=== PATIENT | female | born 1960 | race African-American/Black ===

== ENCOUNTER 2019-04-26 14:56 | Inpatient (IN) | payer MEDICARE ==
[~2019-04-26] VITALS: Ht 157.5 cm; Wt 73.5 kg
--- NOTE | 2019-04-26 15:13 | NUR ---
PT AAOX4. AMBULATORY. DAYANNA FROM [facility] FOR MEDICAL CLEARANCE PRIOR TO GPS ADMISSION. PER PA PT HAS BEEN NON COMPLIANT WITH MEDS AND CARE. PT ALSO HAS BEEN AGGRESIVE VERBALLY AND IS ON A 5150. PLACED ON MONITOR AND PULSE OX.
--- NOTE | 2019-04-26 15:14 | NUR ---
SECURITY CALLED FOR WANDING
--- NOTE | 2019-04-26 15:14 | NUR ---
URINE COLLECTED AND SENT TO LAB
--- NOTE | 2019-04-26 15:14 | NUR ---
[facility]
[2019-04-26] MEDS ORDERED: NA P133E RC (15:16)
[2019-04-26] MEDS ORDERED: MAGN400O6 PO (15:16)
[2019-04-26] MEDS ORDERED: OLAN20TA3 PO (15:16)
[2019-04-26] MEDS ORDERED: BISA10SU11 RC (15:16)
[2019-04-26] MEDS ORDERED: ZOLP5TAB2 PO (15:16)
[2019-04-26] MEDS ORDERED: LORA-259 PO (15:16)
[2019-04-26] MEDS ORDERED: ACET-868 PO (15:16)
[2019-04-26] MEDS ORDERED: LISI10TA5 PO (15:16)
[2019-04-26] MEDS ORDERED: BENZ1TAB7 PO (15:16)
[2019-04-26] MEDS ORDERED: HALO5TAB8 PO (15:16)
[2019-04-26] MEDS ORDERED: MIRT15TA7 PO (15:16)
[2019-04-26] MEDS ORDERED: GUAI100S11 PO (15:16)
[2019-04-26 15:35] LABS: BILIRUBIN,URINE SMALL (NEGATIVE); BLOOD, URINE Negative Ery/uL (NEGATIVE); COLOR,URINE Yellow (YELLOW); KETONES,URINE Trace (NEGATIVE); LEUKOCYTE ESTERASE ,URINE Trace (NEGATIVE); NITRITE, URINE Negative (NEGATIVE); PROTEIN,URINE Trace mg/dl (NEGATIVE); UGLUCOSE Negative (NEGATIVE); UROBILINOGEN,URINE 0.2 EU/dL (0.2)
[2019-04-26 15:36] LABS: APPEARANCE,URINE SLIGHTLY CLOUDY (CLEAR)
[2019-04-26 15:39] LABS: BACTERIA,URINE Moderate /HPF (None Seen); SQUAMOUS EPITHELIAL CELL,UR Many /HPF (None Seen); YEAST,URINE Few /HPF (None Seen)
--- NOTE | 2019-04-26 15:39 | NUR ---
CALLED FOR GPS BED
--- NOTE | 2019-04-26 15:59 | NUR ---
PATIENT REFUSED BLOOD DRAW. AWARE.
--- NOTE | 2019-04-26 16:13 | NUR ---
[facility] BED 216-1
--- NOTE | 2019-04-26 16:24 | NUR ---
REPORT GIVEN TO JAIMEE ANDERSON FOR YO
--- NOTE | 2019-04-26 16:50 | NUR ---
RN GPS ADMISSION NOTE: 59 YEAR OL FEMALE BROUGHT IN TO THE HOSPITAL BY EMS ADMITTED ON 5150 HOLD DTO/DTS/GD FROM [facility]. 5150 HOLD EXPIRING ON 04/29/2019. PT HAS BEEN NON-COMPLIANT WITH MEDICATIONS, REFUSING CARE FROM STAFF, ATTEMPTING TO ELOPE FROM FACILITY WITH NO REGARD FOR HER PERSONAL SAFETY. PT STATED " I DONT KNOW WHAT THEY ARE DOING TO ME BUT IF THEY KEEP THIS UP I AM GOING TO BE JOINING THE [employer]" PT BELIEVES STAFF IS POISONING HER FOOD. PT BECAME AGGRESSIVE AND LOUD WITH STAFF. UPON FACE TO FACE ASSESSMENT PT IS CONFUSED, ANGRY, COMBATIVE, PARANOID, LABILE, TEARFUL, TANGENTIAL, THOUGHT BLOCKING AND CIRCUMSTANCIAL COMMUNICATION. PT IS DISHEVELED, UNKEPT AND BIZARRE IN APPEARANCE. PT IS AMBULATORY WITH STEADY GATE. SPEECH IS PRESSURED AND PT IS YELLING AND SCREAMING. PT REFUSE MRSA, BODY CHECK, UA AND ACCUCHECK. PT HAS A H/O SCHIZOPHRENIA AND MDD WITH PAST PSYCHIATRIC ADMISSIONS. PT IS ON LISINOPRIL 10MG DAILY, COGENTIN 1MG TID, REMERON 15MG QHS AND HALDOL 5MG PO TID.NKA. PT IS A FULL CODE. PT [id number], 98.1,20,90 AND 96%. PT GIVEN PT'S RIGHTS HANDBOOK AND GUIDE TO PRESCRIPTIONS.
[2019-04-26] MEDS ORDERED: TEMAZEPAM 7.5 MG CAPSULE PO PRN (17:00)
[2019-04-26] MEDS ORDERED: ACETAMINOPHEN 325 MG TABLET PO PRN (17:00)
[2019-04-26] MEDS ORDERED: MAG HYDROX/AL HYDROX/SIMETH 30 ML UDC PO PRN (17:00)
[2019-04-26] MEDS ORDERED: MAGNESIUM HYDROXIDE 30 ML UDC PO PRN ×2 (17:00→22:30)
[2019-04-26] MEDS ORDERED: BLOOD SUGAR DIAGNOSTIC 1 EACH STRIP IN ONE (17:00)
[2019-04-26 17:59] VITALS: BP 160/90
[2019-04-26 18:22] VITALS: BP 160/90
--- NOTE | 2019-04-26 19:35 | NUR ---
GPS RN NOTES: PT REFUSED TO CHECK VS. EXPLAINED RISKS AND BENEFITS. STILL REFUSED X3. CONTINUE TO MONITOR.
[2019-04-26] MEDS ORDERED: GUAIFENESIN 300 MG/15 ML UDC PO PRN (22:30)
[2019-04-26] MEDS ORDERED: BISACODYL SUPP (10 MG) 10 MG/SUPP.RECT SUPP.RECT RC PRN (22:30)
[2019-04-26] MEDS ORDERED: NA PHOS,M-B/NA PHOS,DI-BA 1 EA ENEMA RC PRN (22:30)
--- NOTE | 2019-04-27 05:53 | NUR ---
GPS RN NOTES: PT REFUSED BLOOD DRAW. EXPLAINED RISKS AND BENEFITS. STILL REFUSED X3. WILL TRY AGAIN LATER TODAY. WILL ENDORSE TO DAY SHIFT NURSE TO F/U. CONTINUE TO MONITOR.
[2019-04-27 08:00] VITALS: BP 158/98
[2019-04-27] MEDS: BENZTROPINE MESYLATE (1 MG) 1 MG TABLET PO SCH ×3 (09:00→17:44)
[2019-04-27] MEDS: LISINOPRIL (10MG) 10 MG TABLET PO SCH (09:00)
--- NOTE | 2019-04-27 10:52 | NUR ---
FACILITY CONTACT: SW spoke with Nikko, reconciliation coordinator at [facility] Address: [address] [place] [address] [id number], [place] [address] who stated facility is not taking pt back due to her behavior and elopement risk.
--- NOTE | 2019-04-27 11:56 | NUR ---
FAMILY CONTACT: SW spoke with pts brother Zachary [phone] who provided SW with collateral information. Brother stated that pt has struggled with mental illness since pt was 14/15 year old, brother states that pt was institutionalized at the age of 17 and has been in and out of psych hospitals for the past 40 years. Brother states that pt was living on her own for the past 1.5 years and had a rapid decline after Thanksgiving. Brother mentioned that pt had been weening off her psych medications and states that pt became manic and then was sent to [facility] and then transferred to [facility] and [facility]. Per brother pt was also working at [employer] but has been unemployed all her life due to her mental illness. SW informed brother that pt has been refusing medications and refusing to eat and also refusing treatment, brother states that pt has been very paranoid and will be coming on this present day to convince pt to take medications to avoid being RIESED. SW also informed brother that [facility] is not accepting pt back due to her behavior and elopement risk. Brother is aware and agrees with locked SNF placement.
[2019-04-27] MEDS: CLONIDINE HCL 0.2MG/24H PTWK 1 EA PATCH TD SCH (12:39)
--- NOTE | 2019-04-27 13:53 | NUR ---
INITIAL DISCHARGE PLAN: Per pts brother Zachary [phone] pt needs locked SNF as he is aware that [facility] Address: [address] [place] [address] [id number], [place] [address] will not be taking pt back due to her behavior and elopement risk. SW will help form a safe and proper discharge in collaboration with .
--- NOTE | 2019-04-27 15:59 | NUR ---
GROUP NOTE: SW encouraged pt to attend group therapy on this present day discussing "reality testing." Pt not appropriate for group at this time due to paranoia and responding to internal stimuli. Pt is refusing medication and refusing care. SW will continue to encourage pt to engage in recovery and accept her illness.
[2019-04-27 16:00] VITALS: BP 155/74
[2019-04-27] MEDS: HALOPERIDOL 5 MG TABLET PO SCH (17:44)
[2019-04-27 19:42] VITALS: BP 142/78
[2019-04-27] MEDS: OLANZAPINE 10 MG TABLET PO SCH (21:00)
[2019-04-27] MEDS ORDERED: MIRTAZAPINE 15 MG TABLET PO SCH (22:00)
[2019-04-27] MEDS: MIRTAZAPINE 15 MG TABLET PO SCH (22:00)
--- NOTE | 2019-04-27 22:08 | NUR ---
GPS RN NOTES: PT REFUSED HER 2099 ZYPREXA AND HER 0 REMERON MEDICATION ORDERED. PT SCREAMED WHEN OFFERED THE MEDICATION. EXPLAINED RISKS AND BENEFITS. PT STILL REFUSED. CONTINUE TO MONITOR.
[2019-04-28] MEDS: LORAZEPAM 0.5 MG TABLET PO PRN (02:35)
--- NOTE | 2019-04-28 02:38 | NUR ---
GPS RN NOTES: PT C/O FEELING ANXIOUS. PT STATED, " I FEEL ANXIOUS RIGHT NOW. CAN I HAVE ATIVAN ONLY?" OFFERED ATIVAN 0.5 MG PO PRN ORDERED. PT AGREED. PT TOLERATED MEDICATION WELL. CONTINUE TO MONITOR.
[2019-04-28 08:00] VITALS: BP 112/71
[2019-04-28] MEDS: BENZTROPINE MESYLATE (1 MG) 1 MG TABLET PO SCH ×4 (09:00→16:52)
[2019-04-28] MEDS: OLANZAPINE 10 MG TABLET PO SCH ×3 (09:00→21:00)
[2019-04-28] MEDS: HALOPERIDOL 5 MG TABLET PO SCH ×4 (09:00→16:52)
[2019-04-28] MEDS: LISINOPRIL (10MG) 10 MG TABLET PO SCH ×2 (09:00→09:44)
--- NOTE | 2019-04-28 11:13 | NUR ---
GPS RN NOTE: PT REFUSED ALL AM MEDS DESPITE MULTIPLE ATTEMPTS AT ADMINISTRATION. DR. CUADRA NOTIFIED Addendum: 04/28/19 at 1653 by ETHEL OSLANO RN PT REFUSED 1700 MEDICATIONS
--- NOTE | 2019-04-28 15:40 | NUR ---
GROUP NOTE: SW encouraged pt to participate in group therapy on this present day discussing "discharge planning." Pt not appropriate for group at this time due to psychosis and paranoia, pt was yelling at staff for unrelated things and actively responding to internal stimuli. Pt was pacing back and forth from her room to the nurses station.
[2019-04-28] MEDS: MIRTAZAPINE 15 MG TABLET PO SCH (21:11)
[2019-04-28 22:58] VITALS: BP 112/71
[2019-04-29 08:00] VITALS: BP 101/52
[2019-04-29] MEDS: LISINOPRIL (10MG) 10 MG TABLET PO SCH (09:00)
[2019-04-29] MEDS: OLANZAPINE 10 MG TABLET PO SCH ×2 (09:00→21:00)
[2019-04-29] MEDS: HALOPERIDOL 5 MG TABLET PO SCH ×3 (09:00→17:00)
[2019-04-29] MEDS: BENZTROPINE MESYLATE (1 MG) 1 MG TABLET PO SCH ×3 (09:00→17:00)
--- NOTE | 2019-04-29 12:36 | NUR ---
PATIENT REFUSED 0900 AND 1300 MEDICATIONS DESPITE EXPLANATION OF RISKS AND BENEFITS
[2019-04-29] MEDS: LORAZEPAM 0.5 MG TABLET PO PRN (14:21)
--- NOTE | 2019-04-29 17:53 | NUR ---
PT REFUSED 1700 MEDICATIONS AND YELLED AT RN TO GET OUT OF HER ROOM.
[2019-04-29] MEDS: MIRTAZAPINE 15 MG TABLET PO SCH (21:04)
--- NOTE | 2019-04-29 22:10 | NUR ---
GPS-RN PATIENT REFUSED SCHEDULED MEDS REMERON AND OLANZAPINE. DESPITE OF EXPLANATION THE RISKS AND BENEFITS. PATIENT CONTINUES TO REFUSE. WILL CONTINUE TO MONITOR.
[2019-04-30 08:00] VITALS: BP 139/81
[2019-04-30] MEDS: OLANZAPINE 10 MG TABLET PO SCH ×2 (09:00→21:00)
[2019-04-30] MEDS: HALOPERIDOL 5 MG TABLET PO SCH ×3 (09:00→17:00)
[2019-04-30] MEDS: LISINOPRIL (10MG) 10 MG TABLET PO SCH (09:00)
[2019-04-30] MEDS: BENZTROPINE MESYLATE (1 MG) 1 MG TABLET PO SCH ×3 (09:00→17:00)
--- NOTE | 2019-04-30 09:28 | NUR ---
GPS RN PATIENT REFUSED ALL 0900 MEDICATIONS. BECAME UPSET/ANGRY AND STARTED TO YELL AT RN
--- NOTE | 2019-04-30 12:19 | NUR ---
PATIENT AGGRESSIVE, YELLING AND POSTURING WHEN APPROACHED ABOUT MEDICATION PO. WHEN ALONE IN ROOM ESCALATING BEHAVIOR AND SCREAMING AT TOP OF LUNGS IN RESPONSE TO INTERNAL STIMULI. DR. RUBIO ORDERED ZYPREXA 10MG AND ATIVAN 1MG IM. Addendum: 04/30/19 at 1248 by ETHEL SOLANO RN IM medications pulled and administered at 1237. Along with assistance of security patient received injection without any difficulty but immediately afterward started shouting again, screaming for staff to leave her house that staff is going to hell and slammed her bedroom door shut. Will monitor for safety and behavior and to monitor behavior improvement. Patient continues to scream in her room.
[2019-04-30] MEDS ORDERED: LORAZEPAM INJ 2 MG/ML VIAL IM STA (12:20)
[2019-04-30] MEDS ORDERED: OLANZAPINE 10 MG VIAL IM STA (12:20)
[2019-04-30 20:00] VITALS: BP 132/53
[2019-04-30 20:09] VITALS: BP 132/53
--- NOTE | 2019-04-30 21:52 | NUR ---
GPS RN NOTE, PATIENT HAS A COMPLAINT THAT 20 MG OF ZYPREXA IS TO MUCH FOR HER AND WOULD ONLY LIKE TO TAKE 7.5MG OF ZYPREXA. PAGED DR RUBIO AND INFORMED HER MY FINDINGS. DR RUBIO ORDERED TO GIVE ZYPREXA 7.5 MG PO ONCE. ALL ORDERS NOTED AND CARRIED OUT. WILL CONTINUE TO MONITOR THIS PATIENT.
[2019-04-30] MEDS: MIRTAZAPINE 15 MG TABLET PO SCH (22:00)
[2019-04-30] MEDS ORDERED: OLANZAPINE 2.5 MG TABLET PO ONE (22:00)
--- NOTE | 2019-04-30 22:13 | NUR ---
REFUSED 2100 MEDS PATIENT IS ANXIOUS, RESTLESS, AGITATED, REFUSED 2100 MEDS, STATED, SHE IS THE ONE TO DECIDE HER MEDICATION DOSE TO TAKE, NOT THE DOCTOR. PT. REFUSED TO TAKE ZYPREXA 20 MG & REMERON 15 MG ORDERED BY . PT. ONLY WANTED TO TAKE 7.5 MG OF ZYPREXA, NOT ANY OTHER MEDICINE. MD MADE AWARE BY CHARGE NURSE, RECEIVED NEW ORDER OF ZYPREXA 7.5 MG. WILL VERIFY THE DOSE WITH PHARMACY & GIVE TO THE PATIENT. WILL CONTINUE TO MONITOR FOR SAFETY & BEHAVIOR.
--- NOTE | 2019-04-30 22:16 | NUR ---
CALLED AFTER HOURS PHARMACY TO VERIFY ZYPREXA 7.5 MG. PHARMACIST STATED SHE WILL VERIFY THE MEDICINE.
--- NOTE | 2019-04-30 23:30 | NUR ---
GPS RN NOTE PHARMACY VERIFIED ONE TIME ZYPREXA 7.5 MG, PATIENT AGREED TO TAKE THE MEDICINE & MEDICINE GIVEN TO THE PT. ORDERED BY MD. WILL CONTINUE TO MONITOR FOR SAFETY & BEHAVIOR.
[2019-05-01] MEDS: HALOPERIDOL 5 MG TABLET PO SCH ×3 (08:47→17:00)
[2019-05-01] MEDS: BENZTROPINE MESYLATE (1 MG) 1 MG TABLET PO SCH ×3 (08:47→17:00)
[2019-05-01] MEDS: LISINOPRIL (10MG) 10 MG TABLET PO SCH (08:47)
[2019-05-01] MEDS: OLANZAPINE 10 MG TABLET PO SCH ×2 (08:48→21:00)
[2019-05-01] MEDS ORDERED: LORAZEPAM INJ 2 MG/ML VIAL IM ONE (12:30)
[2019-05-01] MEDS ORDERED: OLANZAPINE 10 MG VIAL IM ONE (12:30)
--- NOTE | 2019-05-01 12:40 | NUR ---
RN NOTE: PT BECAME ANGRY, ASSAULTIVE, SPEAKING IN TONGUE, THREATENING TO BEAT STAFF WITH BIBLE. PT RTIS AND YELLING AND SCREAMING. I WAS NOT ABLE TO REDIRECT PT. I OFFERED PT PO MEDICATION AN PT REFUSED . PT BECAME VERBALLY ABUSIVE AND DTO. I TRIED TO REDIRECT PT INTO A LOWER LEVEL OF STIMULATING SETTING PT'S BEHAVIOR CONTINUED TO ESCALATE. DR RUBIO WAS ON THE UNIT DURING THE PATIENT'S EPISODE AND ORDERED ZYPREXA 10MG AND ATIVAN 1MG IM. PT BECAME RESISTIVE AND FOUGHT THE IM MEDICATION. SECURITY WAS CALLED AND IM GIVEN TO PT'S GLUTEUS REJI AT 12:40 CLOSE MONITORING OF PT CONTINUED TO BE MANIC AND WAS FOUND WRITING ON THE BATHROOM BOUCHER. PT BECAME CALM AND STOPPED YELLING AND THREATENING OTHERS. PT BEGAN TO BE COOPERATIVE AND WAS ABLE TO BE RE-DIRECTIVE.
[2019-05-01 16:00] VITALS: BP 132/71
[2019-05-01 20:00] VITALS: BP 160/84
[2019-05-01 20:07] VITALS: BP 160/84
[2019-05-01] MEDS ORDERED: OLANZAPINE 5 MG TABLET PO ONE ×2 (20:30→21:00)
--- NOTE | 2019-05-01 21:01 | NUR ---
REFUSED ZYPREXA 20 MG PATIENT REFUSED TO TAKE ZYPREXA 20 MG, WANTS TO TAKE 7.5 MG ONLY. CHARGE NURSE NOTIFIED MD & RECEIVED NEW ORDER TO GIVE ZYPREXA 7.5 MG ONE TIME ONLY. WILL NOTIFY PHARMACY TO VERIFY THE ORDER & WILL GIVE ZYPREXA 7.5 MG TO THE PT. ORDERED.
[2019-05-01] MEDS: MIRTAZAPINE 15 MG TABLET PO SCH (21:23)
--- NOTE | 2019-05-01 21:24 | NUR ---
GPS RN NOTE PATIENT TOOK ZYPREXA 7.5 MG ONE TIME MEDICINE, REFUSED REMERON 15 MG TO TAKE DESPITE OF RISKS & BENEFIT EXPLANATIONS. WILL CONTINUE TO MONITOR FOR SAFETY & BEHAVIOR.
--- NOTE | 2019-05-01 22:00 | NUR ---
REFUSED SKIN ASSESSMENT PATIENT REFUSED SKIN ASSESSMENT DESPITE OF RISKS & BENEFITS EXPLANATIONS. PT. IS VERY PARANOID, DELUSIONAL, SUSPICIOUS, ANXIOUS, RESTLESS, AGGRESSIVE, YELLING/SCREAMING IF APPROACHED TO ASSIST WITH ANY ADL CARE OR SKIN ASSESSMENT.
[2019-05-01 23:30] VITALS: BP 147/78
[2019-05-02 08:00] VITALS: BP 138/60
[2019-05-02] MEDS: BENZTROPINE MESYLATE (1 MG) 1 MG TABLET PO SCH ×3 (08:35→17:00)
[2019-05-02] MEDS: OLANZAPINE 10 MG TABLET PO SCH (08:35)
[2019-05-02] MEDS: LISINOPRIL (10MG) 10 MG TABLET PO SCH (08:35)
[2019-05-02] MEDS: HALOPERIDOL 5 MG TABLET PO SCH ×3 (08:35→17:00)
--- NOTE | 2019-05-02 10:02 | NUR ---
RN NOTE- PT REFUSING ALL MORNING MEDS STATING SHE WILL ONLY TAKE 2.5 MG OF ZYPREXA. NOTIFIED. DR RUBIO WILL BE ON UNIT AFTER LUNCH. PT CALM AT PRESENT, RESPONDING TO INTERNAL STIMULUS. DIRECTABLE
--- NOTE | 2019-05-02 15:48 | NUR ---
PC HEARING NOTIFICATION: BRYNN contacted pts brother Zachary [phone] to inform him of pts PC hearing that will held tomorrow 05/03/19 at 1400 and also provided him with an update. BRYNN informed him that pt has been refusing medication and has filed a RIESE petition. BRYNN also informed him that pt was given IM's the past 2 days due to her aggressive behavior. Brother states that he will not attend the hearing as he states pt is blaming all her family for her current hospitalization and is refusing to speak to her them. Brother agrees with treatment plan.
[2019-05-02 16:00] VITALS: BP 152/76
[2019-05-02] MEDS: OLANZAPINE 5 MG TABLET PO SCH ×2 (17:12→21:45)
[2019-05-02 20:00] VITALS: BP 156/85
[2019-05-02 20:39] VITALS: BP 156/85
[2019-05-02 21:40] VITALS: BP 145/82
[2019-05-02] MEDS: MIRTAZAPINE 15 MG TABLET PO SCH (22:00)
--- NOTE | 2019-05-02 22:04 | NUR ---
REFUSED REMERON OFFERED REMERON 15 MG @ 2200 TO THE PATIENT, PT. KEPT REFUSING, STATED, " IT WILL KILL ME. I DON'T WANT IT." DESPITE OF RISK & BENEFIT EXPLANATIONS, PT. CONTINUED TO REFUSE.
[2019-05-02 22:30] VITALS: BP 141/79
[2019-05-03 08:00] VITALS: BP 158/90
[2019-05-03] MEDS: OLANZAPINE 5 MG TABLET PO SCH ×4 (08:03→22:00)
[2019-05-03] MEDS: BENZTROPINE MESYLATE (1 MG) 1 MG TABLET PO SCH ×3 (08:07→16:45)
[2019-05-03] MEDS: LISINOPRIL (10MG) 10 MG TABLET PO SCH (08:07)
[2019-05-03] MEDS: HALOPERIDOL 5 MG TABLET PO SCH ×3 (08:07→16:45)
--- NOTE | 2019-05-03 08:14 | NUR ---
RN NOTE- PT SCREAMING ANDF CRYING AND PRAYING. UNABLE TO CALM DOWN. TOOK ZYPREXA PO BUT PT CONTINUING TO REFUSE ALL OTHER MEDS AND ESCALATING. DR RUBIO ORDERED HALDOL 5 MG IM, ATIVAN 2 MG IM, BENADRYL 50 MG IM. WILL COMPLY AND MONITOR PT.
[2019-05-03] MEDS ORDERED: HALOPERIDOL LACTATE INJ 5 MG/ML VIAL IM ONE (08:30)
[2019-05-03] MEDS ORDERED: LORAZEPAM INJ 2 MG/ML VIAL IM ONE (08:30)
[2019-05-03] MEDS ORDERED: diphenhydrAMINE HCL 50 MG/ML VIAL IM ONE (08:30)
--- NOTE | 2019-05-03 08:34 | NUR ---
RN NOTE- HALDOL 5 MG IM, ATIVANB 2 MG IM AND BENADRYL 50 MG IM GIVEN W SECURITY, FEMALE RN AND PIPE ORGAN INSTALLER. PT COMBATIVE, FIGHTING AND SPITTING ON STAFF. WILL CONTINUE TO MONITOR AND ASSIST.
[2019-05-03] MEDS: LEVOFLOXACIN (500MG) 500 MG TABLET PO SCH (14:00)
[2019-05-03 14:09] LABS: BASOPHILS % (AUTO) 0.3 % (0.0-2.0); EOSINOPHILS % (AUTO) 1.5 % (0.0-6.0); HEMATOCRIT 34 % (33-45); HEMOGLOBIN 11.2 g/dL (11.5-14.8); LYMPHOCYTES # (AUTO) 2.1 /CMM (0.8-4.8); LYMPHOCYTES % (AUTO) 46.8 % (20.0-44.0); MEAN CORPUSCULAR HGB CONC 33 g/dl (31.0-36.0); MEAN CORPUSCULAR VOLUME 90 fL (82-100); MONOCYTES # (AUTO) 0.4 /CMM (0.1-1.30); MONOCYTES % (AUTO) 8.5 % (2.0-12.0); NEUTROPHILS # (AUTO) 1.9 /CMM (1.8-8.9); NEUTROPHILS % (AUTO) 42.9 % (43.0-81.0); PLATELET COUNT (AUTO) 232 /CMM (150-450); RED BLOOD CELL COUNT(AUTO) 3.76 MIL/uL (4.0-5.2); WHITE BLOOD COUNT (AUTO) 4.4 K/uL (4.3-11.0)
--- NOTE | 2019-05-03 15:45 | NUR ---
GROUP NOTE: SW encouraged pt to attend group on this present day discussing "suicidal urges." Pt is not appropriate for group due to her current psychotic symptoms and inappropriate behavior. Pt unable to be redirected and sit in a group setting.
[2019-05-03 16:00] VITALS: BP_SYST 136; BP_SYST 154; BP_DIAS 76; BP_DIAS 78
--- NOTE | 2019-05-03 16:46 | NUR ---
RN NOTE- PT SLEPT THIS AFTERNOON. REFUSED MEDS, FOOD ND CARE. RAINER Daniel THIS RN. WILL CONTINUE TO PROVIDE CALM THERAPEUTIC ENVIRONMENT AND MONITOR PT BEHAVIOR.
[2019-05-03 16:49] LABS: ALBUMIN 2.8 g/dL (3.4-5.0); BILIRUBIN,TOTAL 0.2 mg/dL (0.2-1.0); CALCIUM, SERUM 8.8 mg/dL (8.5-10.1); CREATININE 0.7 mg/dL (0.6-1.3); POTASSIUM 4.1 mmol/L (3.5-5.1); TOTAL PROTEIN, SERUM 6.2 g/dL (6.4-8.2)
[2019-05-03 20:36] VITALS: BP 128/69
[2019-05-03] MEDS: MIRTAZAPINE 15 MG TABLET PO SCH (22:00)
--- NOTE | 2019-05-03 22:07 | NUR ---
GPS RN NOTES: PT REFUSED REMERON 15MG PO @2200. PT STATED, "I HAVE THER RIGHT TO REFUSED." EXPLAINED RISKS AND BENEFITS. STILL REFUSED X3. CONTINUE TO MONITOR.
[2019-05-04 08:00] VITALS: BP 154/85
[2019-05-04] MEDS: BENZTROPINE MESYLATE (1 MG) 1 MG TABLET PO SCH ×3 (09:00→17:00)
[2019-05-04] MEDS: LISINOPRIL (10MG) 10 MG TABLET PO SCH (09:00)
[2019-05-04] MEDS: HALOPERIDOL 5 MG TABLET PO SCH ×3 (09:00→17:00)
[2019-05-04] MEDS: OLANZAPINE 5 MG TABLET PO SCH ×4 (09:03→20:31)
--- NOTE | 2019-05-04 09:14 | NUR ---
PATIENT REFUSED 0900 MEDS BESIDES ZYPREXA. PATIENT IS DELUSIONAL, EASILY AGITATED, PARANOID. PSYCHOTIC FEATURES NOTED.
[2019-05-04] MEDS: CLONIDINE HCL 0.2MG/24H PTWK 1 EA PATCH TD SCH (13:45)
[2019-05-04] MEDS: LEVOFLOXACIN (500MG) 500 MG TABLET PO SCH (13:46)
--- NOTE | 2019-05-04 13:46 | NUR ---
PATIENT SELECTIVE WITH MEDICATION MANAGEMENT. ONLY ADMINISTERED CLONIDINE AND ZYPREXA. REFUSED REST OF 1300 MEDS
--- NOTE | 2019-05-04 14:18 | NUR ---
SNF REFERRAL: BRYNN faxed SNF referral to Agustin, community development coordinator at [facility] Address: [address], [place] [address] for review.
--- NOTE | 2019-05-04 15:23 | NUR ---
INDIVIDUAL MEETING: SW met with pt to discuss her discharge plan, pt was demanding to meet with SW in her office and became agitated when SW informed her she was not able to come into the SW office. Pt stated that she had rights and meeting with SW in her office was one of them. Pt then stated that she refused to go to a SNF and that she wanted to go back home. Pt was yelling and became volatile with SW. Pt attempted to forcefully enter SW office and SW provided appropriate boundaries.
--- NOTE | 2019-05-04 15:29 | NUR ---
FAMILY CONTACT: BRYNN spoke with pts brother Zachary [phone] and informed him pt has been refusing medications except for Zyprexa and is also refusing SNF placement brother stated that pt is not able to live at home alone as pt will decompensate as she is unable to care for herself due to her current mental state. BRYNN informed him that she will discuss pts SNF refusal with MD and will have MD contact him. Brother stated that he will try to do whatever he can to help but stated that pt is not receptive to receiving help from anyone.
[2019-05-04 16:00] VITALS: BP 149/91
--- NOTE | 2019-05-04 19:01 | NUR ---
PATIENT IS SELECTIVE WITH HER MEDICATION ADMINISTRATION. PATIENT ONLY TOOK ZYPREXA AT 1700. PSYCHOTIC SYMPTOMS NOTED. PATIENT IS VERY LABILE WITH HER MOOD AND UNPREDICTABLE. PATIENT GETS AGITATED AND AGGRESSIVE WHEN A CONVERSATION IS ATTEMPTED. EXTREMELY PARANOID, GUARDED.
[2019-05-04 20:06] VITALS: BP 139/77
[2019-05-04] MEDS: MIRTAZAPINE 15 MG TABLET PO SCH ×2 (22:00→22:49)
--- NOTE | 2019-05-04 22:35 | NUR ---
GPS RN NOTES: PT REFUSED REMERON 15MG PO @2200 ORDERED. PT WAS EASILY AGITATED AND STATED, " I NEED TO PRAY. I HATE ALL THIS FORCING STUFF!" PT CONTINUED TO TALK TO SELF AND YELLING. EXPLAINED RISKS AND BENEFITS. PT STILL REFUSED X3. CONTINUE TO MONITOR.
--- NOTE | 2019-05-04 22:54 | NUR ---
GPS RN NOTES: UPON DOING ROUNDS, HEARD PT YELLING IN ROOM. ASKED PT HOW SHE IS. PT SITTING IN BED. PT STATED, " YOU KNOW WHAT? CAN I TAKE MY LAST MEDS I DIDN'T TAKE JUST NOW? I WOULD LIKE TO TAKE THAT MEDICATION SO THAT I CAN BE MED COMPLIANT AND GO HOME SOON." OFFERED REMERON 15 MG PO ORDERED. PT AGREED AND TOLERATED MEDICATION WELL. CONTINUE TO MONITOR.
[2019-05-05] MEDS: OLANZAPINE 5 MG TABLET PO SCH ×4 (08:11→20:45)
[2019-05-05] MEDS: BENZTROPINE MESYLATE (1 MG) 1 MG TABLET PO SCH ×3 (08:12→16:38)
[2019-05-05] MEDS: LISINOPRIL (10MG) 10 MG TABLET PO SCH (08:13)
[2019-05-05] MEDS: HALOPERIDOL 5 MG TABLET PO SCH ×3 (08:13→16:38)
--- NOTE | 2019-05-05 08:14 | NUR ---
PATIENT REFUSED VS CHECK THIS MORNING ALONG WITH ALL 0900 MEDS BESIDES ZYPREXA. PATIENT BEHAVIOR IS ELATED, DIFFICULT TO RE-DIRECT. INFORMED PATIENT QUITE A FEW TIMES THAT SHE CAN'T HAVE A THREATENING ATTITUDE TOWARDS STAFF AND OTHER PATIENTS. REDIRECTED PATIENT TO HER ROOM AND INFORMED HER THAT SHE NEEDS TO LOWER THE TONE OF HER VOICE WHEN SPEAKING TO OTHERS.
--- NOTE | 2019-05-05 08:49 | NUR ---
Dr. Darnell made aware that the Reise Hearing scheduled today at 2:00 pm (05/05/19).
--- NOTE | 2019-05-05 12:49 | NUR ---
ANITA HEARING NOTIFICATION: BRYNN spoke with pts brother Zachary [phone] and informed him pt is having a medication capacity hearing on this present day at 2:00pm. Brother informed SW that pt has been calling her friends to come pick her up on Thursday05/06/19. SW informed him that pt is continuing to refuse SNF placement and remains psychotic responding to internal stimuli and yelling and screaming. Brother states that he feels pt is not stable for discharge and needs to be given more medication and states that she cannot return home with this mental state.
--- NOTE | 2019-05-05 12:57 | NUR ---
SNF REFERRAL: SW received a call from Agustin, care coordinator at [facility] [address] [place] [address] stating pt was not accepted to the facility due to her current mental state.
[2019-05-05] MEDS: LEVOFLOXACIN (500MG) 500 MG TABLET PO SCH (13:05)
--- NOTE | 2019-05-05 13:06 | NUR ---
PATIENT REFUSED 1300 MEDS BESIDES ZYPREXA. WHEN I WENT TO PATIENT'S ROOM TO INFORM HER THAT HER MEDICATIONS ARE DUE, PATIENT JUMPED OUT OF BED SCREAMING AT ME CHARGING AT ME DOWN THE HESS. PATIENT WAS VERBALLY ABUSIVE TOWARDS. PSYCHOTIC SYMPTOMS NOTED.
[2019-05-05] MEDS: HALOPERIDOL LACTATE INJ 5 MG/ML VIAL IM PRN (16:42)
--- NOTE | 2019-05-05 16:45 | NUR ---
PATIENT REFUSED 1700 MEDS. HALDOL INJECTION GIVEN
--- NOTE | 2019-05-05 16:46 | NUR ---
EARLIER TODAY, PATIENT GAVE VERBAL PERMISSION TO GIVEN HER [place] INFORMATION OVER THE PHONE
--- NOTE | 2019-05-05 20:00 | NUR ---
GPS/INTERNATIONAL ACCOUNT REPRESENTATIVE NOTES: PT. REFUSED HS VITAL SIGNS. OFFERED 3X. EXPLAINED RISK AND BENEFITS. PT. STILL REFUSED.
[2019-05-05] MEDS: MIRTAZAPINE 15 MG TABLET PO SCH (20:46)
--- NOTE | 2019-05-05 20:46 | NUR ---
GPS/AMBULANCE DRIVER NOTES: PT. REFUSED HS MEDS. OFFERED 3X. EXPLAINED RISK AND BENEFITS. PT. STILL REFUSED.
[2019-05-06 08:00] VITALS: BP 129/80
[2019-05-06] MEDS: HALOPERIDOL 5 MG TABLET PO SCH ×4 (09:00→16:49)
[2019-05-06] MEDS: OLANZAPINE 5 MG TABLET PO SCH ×5 (09:00→21:56)
[2019-05-06] MEDS: BENZTROPINE MESYLATE (1 MG) 1 MG TABLET PO SCH ×3 (09:00→16:54)
[2019-05-06] MEDS: LISINOPRIL (10MG) 10 MG TABLET PO SCH (09:00)
[2019-05-06] MEDS: HALOPERIDOL LACTATE INJ 5 MG/ML VIAL IM PRN (09:19)
--- NOTE | 2019-05-06 09:31 | NUR ---
GPS/RN PT AGREED TO TAKE HALDOL 5MG PO AND ZYPREXA 7.5MG PO . P TREFUSED THE REST OF AM MEDS. HALDOL LACTATE IM WAS WASTED
--- NOTE | 2019-05-06 12:48 | NUR ---
GPS/RN PT TOOK HALDOL PO AND ZYPREXA PO ONLY. REFUSED THE REST.
[2019-05-06] MEDS: LEVOFLOXACIN (500MG) 500 MG TABLET PO SCH (14:00)
[2019-05-06 16:00] VITALS: BP 152/83
[2019-05-06] MEDS: MIRTAZAPINE 15 MG TABLET PO SCH (22:58)
[2019-05-07] MEDS: LISINOPRIL (10MG) 10 MG TABLET PO SCH (08:41)
[2019-05-07] MEDS: OLANZAPINE 5 MG TABLET PO SCH ×4 (08:41→21:00)
[2019-05-07] MEDS: BENZTROPINE MESYLATE (1 MG) 1 MG TABLET PO SCH ×3 (08:41→17:00)
[2019-05-07] MEDS: HALOPERIDOL 5 MG TABLET PO SCH ×3 (08:41→17:00)
--- NOTE | 2019-05-07 13:45 | NUR ---
RN-CO: Patient was screaming, yelling and very restless. She is not redirectable, Offered Ativan PO but she is too agitated and she refused.
--- NOTE | 2019-05-07 13:55 | NUR ---
RN-CO: Patient is still agitated, trying to destroy properties, trying to elope in the unit and running around. Screaming and yelling. Called Dr Kimi MD ordered Ativan 2mg , Benadryl 50 mg , Haldol 5 mg IM STAT, noted and carried out. We will monitor q 15 min and until stable.
[2019-05-07] MEDS ORDERED: LORAZEPAM INJ 2 MG/ML VIAL IM ONE (14:00)
[2019-05-07] MEDS ORDERED: HALOPERIDOL LACTATE INJ 5 MG/ML VIAL IM ONE (14:00)
[2019-05-07] MEDS ORDERED: diphenhydrAMINE HCL 50 MG/ML VIAL IM PRN (14:00)
--- NOTE | 2019-05-07 15:46 | NUR ---
RN-CO: Patient is asleep in her room, respiration even and unlabored. Skin warm and dry to touch.
[2019-05-07 16:00] VITALS: BP 97/64
--- NOTE | 2019-05-07 17:30 | NUR ---
GPS/RN NOT MEDICATED FOR 1700 PT IS SLEEPING FOLLOWING PSYCHOTIC EPISODE RESULTING IN CHEMICAL RESTRAINTS. MD AWARE. VSS. RESPIRATIONS ARE EVEN AND UNLABORED.
[2019-05-07 20:48] VITALS: BP 138/77
[2019-05-08 08:00] VITALS: BP 138/72
[2019-05-08] MEDS: HALOPERIDOL 5 MG TABLET PO SCH ×3 (08:11→16:03)
[2019-05-08] MEDS: BENZTROPINE MESYLATE (1 MG) 1 MG TABLET PO SCH ×3 (08:11→16:03)
[2019-05-08] MEDS: OLANZAPINE 5 MG TABLET PO SCH ×4 (08:12→20:50)
[2019-05-08] MEDS: LISINOPRIL (10MG) 10 MG TABLET PO SCH (08:13)
[2019-05-08 20:47] VITALS: BP 164/92
[2019-05-08 21:05] VITALS: BP 148/84
--- NOTE | 2019-05-08 21:19 | NUR ---
GPS-RN PATIENT REFUSED WEEKLY SKIN ASSESSMENT AND PT. IS VERY UNCOOPERATIVE REFUSED TO PROVIDE URINE SPECIMEN DESPITE OF EXPLANATION THE RISKS AND BENEFITS. PATIENT CONTINUES TO REFUSE. WILL ENDORSE TO THE DAY SHIFT NURSE FOR CONTINUITY OF CARE.
[2019-05-08] MEDS: LORAZEPAM 0.5 MG TABLET PO PRN (22:19)
[2019-05-09 08:00] VITALS: BP 154/94
[2019-05-09] MEDS: HALOPERIDOL 5 MG TABLET PO SCH ×3 (08:16→17:09)
[2019-05-09] MEDS: OLANZAPINE 5 MG TABLET PO SCH ×4 (08:17→21:18)
[2019-05-09] MEDS: LISINOPRIL (10MG) 10 MG TABLET PO SCH (08:17)
[2019-05-09] MEDS: BENZTROPINE MESYLATE (1 MG) 1 MG TABLET PO SCH ×3 (08:18→17:09)
--- NOTE | 2019-05-09 10:15 | NUR ---
RN NOTE- UA COLLECTED FOR CULTURE AND SENT TO LAB
[2019-05-09 12:23] LABS: APPEARANCE,URINE CLEAR (CLEAR); BILIRUBIN,URINE NEGATIVE (NEGATIVE); BLOOD, URINE NEGATIVE Ery/uL (NEGATIVE); COLOR,URINE YELLOW (YELLOW); KETONES,URINE NEGATIVE (NEGATIVE); LEUKOCYTE ESTERASE ,URINE SMALL (NEGATIVE); NITRITE, URINE NEGATIVE (NEGATIVE); PH,URINE 7.5 (5.0-8.0); PROTEIN,URINE NEGATIVE (NEGATIVE); UGLUCOSE NEGATIVE (NEGATIVE); UROBILINOGEN,URINE 0.2 EU/dL (0.2)
[2019-05-09 12:47] LABS: BACTERIA,URINE Few /HPF (None Seen); RBC,URINE 0-2 /HPF (0-2); SQUAMOUS EPITHELIAL CELL,UR Few /HPF (None Seen); YEAST,URINE Few /HPF (None Seen)
--- NOTE | 2019-05-09 13:50 | NUR ---
SNF REFERRAL: SW faxed SNF referral to RONIT, admission coordinator at [facility] (SNF) [address], [address] for review.
[2019-05-09] MEDS ORDERED: HALOPERIDOL DECANOATE IM 100 MG/ML AMPUL IM ONE (15:00)
--- NOTE | 2019-05-09 15:30 | NUR ---
SNF: SW received a call from RONIT, admission coordinator at [facility] [address] [place], [address] stating pt has been accepted to the facility.
[2019-05-09 16:00] VITALS: BP 153/77
--- NOTE | 2019-05-09 19:59 | NUR ---
RN NOTES: PT. REFUSED VITAL SIGNS TO TAKEN, ENCOURAGED X3 STILL REFUSED , PER PT. I DON'T WANTS TO BE CHECK , WILL CONTINUITY WITH CARE.
[2019-05-10] MEDS: ACETAMINOPHEN 325 MG TABLET PO PRN ×3 (06:13→20:24)
[2019-05-10] MEDS: LISINOPRIL (10MG) 10 MG TABLET PO SCH (09:00)
[2019-05-10] MEDS: BENZTROPINE MESYLATE (1 MG) 1 MG TABLET PO SCH ×3 (09:25→17:14)
[2019-05-10] MEDS: HALOPERIDOL 5 MG TABLET PO SCH ×2 (09:25→12:09)
[2019-05-10] MEDS: OLANZAPINE 5 MG TABLET PO SCH ×3 (09:25→17:14)
--- NOTE | 2019-05-10 09:40 | NUR ---
RN NOTES ADMINISTERED AM PSYCHOTIC MEDS, WENT BACK INTO THE ROOM AND FOUND PILLS DISSOLVING AT THE BOTTOM OF THE CUP. PT REFUSED AM VITALS, UNABLE TO ADMINISTER LISINOPRIL. WILL NOTIFY
[2019-05-10] MEDS: HALOPERIDOL LACTATE INJ 5 MG/ML VIAL IM PRN (10:04)
--- NOTE | 2019-05-10 10:04 | NUR ---
RN NOTES PT SPIT OUT AM DOSE OF HALDOL, IM HALDOL WAS ADMINISTERED WITH THE ASSISTANCE OF MALE STAFF AND FEMALE RN. PT WAS COMBATIVE, YELLING, AND SWEARING. PT IS IN A CALM AND THERAPEUTIC ENVIRONMENT, WILL CONTINUE TO MONITOR FOR ANY CHANGES.
[2019-05-10] MEDS ORDERED: HALOPERIDOL LACTATE INJ 5 MG/ML VIAL IM PRN (14:30)
--- NOTE | 2019-05-10 15:38 | NUR ---
RN NOTES PATIENT HAS REFUSED 4PM VITAL SIGNS
--- NOTE | 2019-05-10 15:50 | NUR ---
FAMILY CONTACT: BRYNN contacted pts brother Zachary [phone] and left a voicemail providing him with an update. BRYNN informed him that pt will receive her 2nd does of Hallily Francis tomorrow and may be discharged by the end of the week to [facility].
--- NOTE | 2019-05-10 19:35 | NUR ---
GPS RN NOTE RECEIVED PATIENT SITTING IN HER BED, A & O X 2, AGITATED, YELLING, SCREAMING, LABILE, SWEARING TO GOD AT THIS TIME, DELUSIONAL, PARANOID. NON REDIRECTABLE AT THIS TIME. WRITES ON THE BOUCHER & FURNITURE WITH PENCIL. REFUSING CARE AT THIS TIME. REFUSED VITALS DESPITE OF RISK & BENEFIT EXPLANATIONS, PT. CONTINUED TO REFUSE CARE/VITALS. EASILY AGITATED TOWARDS STAFF. ISOLATIVE. GAVE HER SPACE TO DEESCALATE HER BEHAVIOR. WILL CONTINUE TO MONITOR Q15 MINS. FOR SAFETY & BEHAVIOR.
--- NOTE | 2019-05-10 20:00 | NUR ---
REFUSED VITALS PATIENT IS EASILY AGITATED, REFUSED VITALS AT 1999. SCREAMS, YELLS AT STAFF WHEN APPROACHED TO CHECK VITALS. DID NOT WANT ANY ONE TO GO TO HER ROOM. CALMS DOWN WHEN GAVE HER SPACE. WILL CONTINUE TO MONITOR Q 15 MINS. FOR SAFETY & BEHAVIOR.
--- NOTE | 2019-05-10 20:25 | NUR ---
PRN TYLENOL GIVEN PATIENT WANTED TO TAKE TYLENOL FOR BODY ACHE, PRN TYLENOL 650 MG PO GIVEN, WILL CONTINUE TO MONITOR CLOSELY.
--- NOTE | 2019-05-10 21:00 | NUR ---
REFUSED SKIN ASSESSMENT PATIENT GETS VERY AGGRESSIVE/AGITATED EASILY, REFUSED SKIN ASSESSMENT. SCREAMS/YELLS, PARANOID, ASKS NURSES TO GET OUT OF HER ROOM. CALMS DOWN WHEN ALONE. DESPITE OF RISKS & BENEFITS EXPLANATIONS PT. CONTINUED TO REFUSED SKIN ASSESSMENT. WILL CONTINUE TO MONITOR Q 15 MINS. FOR SAFETY & BEHAVIOR.
--- NOTE | 2019-05-11 05:30 | NUR ---
GPS RN NOTE AFTER TYLENOL WAS GIVEN, PATIENT DID CALM DOWN, SLEPT WELL. CLEANED HER ROOM, PATIENT THROWS STUFF ON THE FLOOR. REFUSES CARE, WILL ENDORSE TO AM RN TO MONITOR HER FOR SAFETY & BEHAVIOR.
[2019-05-11] MEDS: BENZTROPINE MESYLATE (1 MG) 1 MG TABLET PO SCH ×3 (08:13→17:00)
[2019-05-11] MEDS: OLANZAPINE 5 MG TABLET PO SCH ×2 (08:13→17:00)
[2019-05-11] MEDS: LISINOPRIL (10MG) 10 MG TABLET PO SCH (08:13)
[2019-05-11] MEDS: CLONIDINE HCL 0.2MG/24H PTWK 1 EA PATCH TD SCH (12:00)
--- NOTE | 2019-05-11 14:18 | NUR ---
FAMILY CONTACT: BYRNN contacted pts brother Zachary [phone] and left a voicemail informing him pt will be discharged on this present day to [facility] [address], [address] .
[2019-05-11] MEDS ORDERED: HALOPERIDOL DECANOATE IM 100 MG/ML AMPUL IM ONE (14:39)
--- NOTE | 2019-05-11 14:55 | NUR ---
DISCHARGE NOTE: Pt discharging 4:00pm via [facility] to [facility] [address] [place], [address] . Pts brother Zachary [phone] has been notified via voicemail. Pts mood is paranoid and irritable with congruent affect. Pt denied visual/auditory hallucinations and denied suicidal/homicidal ideation. Pt will be under the care of [facility]: Dr Martini Address: [address] [place] [address] Narayanan Address: [address] [place] [address] . The multidisciplinary exit care form was done, printed, signed, and given to the patient.
--- NOTE | 2019-05-11 15:03 | NUR ---
DR. CUADRA GAVE AN ORDER TO D/C HOLD AND D/C TO [facility], TO CONTINUE SAME MEDS INCLUDING PRN AND TO FOLLOW UP WITH PSYCH AND MEDICAL DOCTORS.
[2019-05-11] MEDS ORDERED: OLANZAPINE 10 MG VIAL IM ONE (16:00)
[2019-05-11] MEDS ORDERED: LORAZEPAM INJ 2 MG/ML VIAL IM ONE (16:00)
--- NOTE | 2019-05-11 16:18 | NUR ---
GPS RN NOTE: DR. CUADRA ORDER TO GIVE ZYPREXA 5 MG IM ONCE, ATIVAN 2 MG IM ONCE PRIOR TO DISCHARGE.
--- NOTE | 2019-05-11 18:32 | NUR ---
GPS SEED CORE OPERATOR NOTE: PATIENT IS A 59 Y/O DISCHARGED TO [facility] PATIENT IS IN STABLE CONDITION. NO ACUTE DISTRESS NOTED. NO COMPLAINTS. COMPLIANT WITH MEDICATION MANAGEMENT. COOPERATIVE WITH PLAN OF CARE. PSYCHIATRIC TREATMENT PLANS MET. MEDICAL TREATMENT PLANS DEFERRED FOR CONTINUAL MONITORING. DENIES SI/HI VAH AT THE TIME OF DISCHARGE. PT REFUSED SKIN ASSESSMENT .PT CALM AND COOPERATIVE AT THE TIME OF DISCHARGE , EDUCATED PATIENT ABOUT AFTERCARE WITH COPY PROVIDED. RETURNED PERSONAL BELONGINGS TO PATIENT. MEDICATIONS RECONCILED WITH ALONG WITH PSYCHIATRIC DISCHARGE ORDERS. DISCHARGE PAPERWORK SIGNED. FOR FOLLOW UP WITH PSYCHIATRIST AND INSPECTOR ALIGNING WITHIN 1 WEEK. PATIENT LEFT THE [facility]BUL[facility] TRIP NUMBER [id number]. REPORT GIVEN TO WILBER ANDERSON.
== END 2019-05-11 18:35 | DRG 885 ==
LOC: ER 15:03 → GPS 16:23 → GPSOV 04-28 00:23 → GPS 04-28 02:19
PROVIDERS: ADMIT Psychiatry & Neurology Psychiatry
DX: F20.9 Schizophrenia, unspecified (principal); N39.0 Urinary tract infection, site not specified; F29 Unspecified psychosis not due to a substance or known physiological condition; G47.00 Insomnia, unspecified; I10 Essential (primary) hypertension; F41.9 Anxiety disorder, unspecified; Z59.0 Homelessness; Z79.899 Other long term (current) drug therapy; Z91.14 Patient's other noncompliance with medication regimen; F32.9 Major depressive disorder, single episode, unspecified; F94.0 Selective mutism
CPT/HCPCS: 36415; 80053-TC; 80061-TC; 80305; 81000-TC; 85025-TC; 87086-TC; J1200; J1630; J1631; J2060; J3490